=== PATIENT | male | born 2000 | race Two or more races ===

== ENCOUNTER 2020-06-14 10:47 | Emergency (ER) | payer OTHER ==
[~2020-06-14] VITALS: Ht 177.8 cm; Wt 85.1 kg
[2020-06-14 10:59] VITALS: BP 155/93
[2020-06-14] MEDS ORDERED: LIDOCAINE 2%/EPI 1:100,000 20 ML VIAL. IJ ONE (11:00)
--- NOTE | 2020-06-14 11:31 | RAD ---
Maxillofacial CT without contrast HISTORY: Trauma to the jaw. FINDINGS: No fracture. The mandible is intact. The maxilla is intact. The teeth are intact. Temporomandibular joints intact, no dislocation. Bony orbits intact. Nasal bones intact. No fracture of the facial bones or paranasal sinuses. The paranasal sinuses are well aerated. Soft tissue laceration and mild swelling overlying the left parasymphyseal mandible, no radiopaque foreign body or hematoma evident. No orbital edema or hematoma. IMPRESSION: Facial bones intact. Mandible intact. Laceration and mild soft tissue swelling overlying the mandible. See above. Exposure: One or more of the following individualized dose reduction techniques were utilized for this examination: 1. Automated exposure control 2. Adjustment of the mA and/or kV according to patient size 3. Use of iterative reconstruction technique Electronically signed by: Jose Ruby MD (06/14/2020 11:28 AM) [facility]
[2020-06-14] MEDS ORDERED: DIPH,PERTUSS(ACELL),TET VAC/PF 0.5 ML SYRINGE. VAX IM ONE (11:45)
--- NOTE | 2020-06-14 12:05 | PHYS DOC ---
Past History Past Medical History: No Pertinent History Past Surgical History: No Surgical History Alcohol Use: None Adult General Chief Complaint Chief Complaint: LACERATION/AVULSION HPI HPI Patient is a 19-year-old male who presents to the emergency room with a cut on his chin. Patient was removing fence poles that had barbed wire on the top of them when one came loose and hit him in the chin. He did not lose consciousness. He has had some bleeding since the incident. He denies any other traumas. He does not fall. Does not have pain anywhere else. Review of Systems Review of Systems Complete ROS is negative unless otherwise documented in HPI Current Medications Current Medications Current Medications Medications (Trade) Dose Ordered Sig/Kash Start Time Stop Time Status Last Admin Dose Admin Diphtheria/ Pertussis/Tetanus Vacc (ADACEL TDap SYRINGE) 0.5 ml ONCE ONCE 06/14/20 11:45 06/14/20 11:47 DC Lidocaine/ Epinephrine (Xylocaine 2%-Epi 1:100,000) 20 ml 1X ONCE 06/14/20 11:00 06/14/20 11:14 DC 06/14/20 11:00 20 ML Allergies Allergies Allergies Coded Allergies Type Severity Reaction Last Updated Verified No Known Drug Allergies 06/14/20 No Physical Exam Physical Exam General: Awake, alert, NAD. Well Nourished, well hydrated. Cooperative HEENT: 5cm semicircle laceration, EOMI, PERRL, airway patent, moist oral mucosa Neck: Supple, trachea midline Respiratory: CTA bilaterally, normal effort, no wheezing/crackles CV: RRR, no murmur, cap refill <2 GI: Soft, nondistended, nontender, no masses MSK: No obvious deformities Skin: Warm, dry, intact Neuro: A&O x3, speech NL, sensory and motor grossly intact, no focal deficits Psych: Normal affect, normal mood, not suicidal or homicidal Current Patient Data Vital Signs Vital Signs Date Time Temp Pulse Resp B/P (MAP) Pulse Ox O2 Delivery O2 Flow Rate FiO2 06/14/20 10:59 98.0 85 16 155/93 (113) 98 Room Air EKG EKG [] Radiology/Procedures Radiology/Procedures [] Heart Score Risk Factors: Risk Factors: DM, Current or recent (<one month) smoker, HTN, HLP, family history of CAD, obesity. Risk Scores: Risk Factors: DM, Current or recent (<one month) smoker, HTN, HLP, family history of CAD, obesity. Course & Med Decision Making Course & Med Decision Making Pertinent Labs and Imaging studies reviewed. (See chart for details) Patient is a 19-year-old male who presents to the emergency room after hitting his chin with a fence pole. He has a significant laceration with surrounding swelling. Laceration was repaired. He will need to get these out in a week. Tetanus was updated. CT was done to rule out a jaw fracture given the significant swelling and depth of the wound. CT was negative. Patient's test results and vitals while in the ED were fully reviewed and discussed with the patient. Patient is stable and at this time does not need admission to the hospital. We have discussed strict return precautions and the importance of following up with their Primary Care Physician. Patient stated understanding and was given an opportunity to ask any questions. Patient is in agreement with plan. Dragon Disclaimer Dragon Disclaimer This electronic medical record was generated, in whole or in part, using a voice recognition dictation system. Additional Procedures Progress Laceration Repair Performed by: Gigi Willson MD Consent: obtained verbally from patient. Risks and benefits were discussed prior to consent Time out performed prior to procedure Location: Chin Length: 5 cm Foreign bodies: No foreign bodies Tendon involvement: none Neurovascularly intact Local anesthetic: lidocaine with epinephrine Anesthetic total: 5 ml Patient sedated: no Preparation: Patient was prepped and draped in usual sterile fashion. Wound was cleaned extensively with water Amount of clean: Standard Deep stitches: no Skin closure: 3-0 Number of sutures:7 Technique: simple interrupted Approximation: closed Approximation difficulty: Simple Patient tolerated procedure well Departure Departure: Impression: Primary Impression: Laceration of chin Disposition: DC HOME SELF CARE/HOMELESS Condition: STABLE Referrals: PCP,NO (PCP) Patient Instructions: Laceration Care, Adult, [id number] GIGI WILLSON MD Jun 14, 2020 12:05
== END 2020-06-14 12:24 | disposition home or self-care (01) ==
LOC: ER 10:47
DX: S01.81XA Laceration without foreign body of other part of head, initial encounter (principal); W26.8XXA Contact with other sharp object(s), not elsewhere classified, initial encounter; Y93.89 Activity, other specified; Y92.89 Other specified places as the place of occurrence of the external cause; Y99.8 Other external cause status
CPT/HCPCS: 12013; 70486; 90471; 90715; 99284-25

== ENCOUNTER 2020-06-21 16:42 | Emergency (ER) | payer OTHER ==
[~2020-06-21] VITALS: Ht 177.8 cm; Wt 85.1 kg
[2020-06-21 16:46] VITALS: BP 155/90
--- NOTE | 2020-06-21 17:05 | PHYS DOC ---
Past History Past Medical History: No Pertinent History Past Surgical History: No Surgical History Smoking: Non-smoker Alcohol Use: None Drug Use: None General Adult EDM: Chief Complaint: SUTURE/STAPLE REMOVAL HPI: HPI: Patient is a 20 year old male who presents for suture removal. One week ago, pt was removing fence poles when one hit his chin, resulting in a 5cm laceration that required 7 stitches. Since then, pt has noted minimal chin pain. He continued to apply antibiotic ointment on it at home. Denies bleeding or oozing from wound. Review of Systems: Review of Systems: Constitutional: Denies fever or chills Integument: Denies rash or skin lesions Neurologic: Denies headache, focal weakness or sensory changes Complete systems were reviewed and found to be within normal limits, except as documented in this note. Family History: Family History: Non-contributory. Current Medications: Current Meds: None. Allergies: Allergies: Allergies Coded Allergies Type Severity Reaction Last Updated Verified No Known Drug Allergies 06/14/20 No Physical Exam: PE: Constitutional: Well developed, well nourished, no acute distress, non-toxic appearance HENT: Normocephalic, atraumatic Eyes: PERRL, EOMI, conjunctiva normal, no discharge Neck: Normal range of motion, no tenderness, supple Lungs & Thorax: No respiratory distress, equal chest rise and fall Abdomen: Soft, no tenderness Skin: Warm, dry, no erythema, no rash, 5cm laceration on chin with associated crusting, [address] Back: No tenderness, no CVA tenderness Extremities: No tenderness, ROM intact, no edema Neurologic: Alert and oriented X 3, normal motor function, normal sensory function, no focal deficits noted Psychologic: Affect normal, judgment normal Current Patient Data: Vital Signs: Vital Signs Date Time Temp Pulse Resp B/P (MAP) Pulse Ox O2 Delivery O2 Flow Rate FiO2 06/21/20 16:46 98.0 86 18 155/90 (111) 98 Room Air EKG: EKG: [] Radiology/Procedures: Radiology/Procedures: [] Course & Med Decision Making: Course & Med Decision Making Patient presents for suture removal. Wound crusted but appears healed. Sutures x 7 successfully removed. Triple antibiotic ointment applied. Patient stable for discharge with outpatient follow-up with PCP. Discussed findings and plan with patient, who acknowledges understanding and agreement. Geetha Disclaimer: Geetha Disclaimer: This electronic medical record was generated, in whole or in part, using a voice recognition dictation system. Additional Procedures Progress Suture removal: Verbal consent obtained. Time out performed. Hand hygiene utilized. Simple interrupted 3-0 Nylon sutures x 7 successfully removed with straight iris scissors and thumb forceps. Patient tolerated procedure well and without difficulty. Empiric antibiotic ointment applied. Departure Departure: Impression: Primary Impression: Encounter for removal of sutures Disposition: 01 [facility] HOME SELF CARE/HOMELESS Condition: STABLE Referrals: PCP,NO (PCP) Patient Instructions: Suture Removal Additional Instructions: Continue to clean wound daily with soap and water. Use over the counter antibiotic ointment for next 2-3 days to continue to help wound heal. You may use Vitamin E ointment to soften the wound and prevent scarring. ACACIA FERRELL DO Jun 21, 2020 17:05
[2020-06-21] MEDS ORDERED: BACITRACIN ZINC TOPICAL OINT PACKET. TP ONE (17:13)
[2020-06-21] MEDS: NEOMY/BACITR/POLYMYXIN OINT PACKET. TP ONE (17:24)
== END 2020-06-21 17:29 | disposition home or self-care (01) ==
LOC: ER 16:42
DX: S01.81XD Laceration without foreign body of other part of head, subsequent encounter (principal); W45.8XXD Other foreign body or object entering through skin, subsequent encounter
CPT/HCPCS: 99283